=== PATIENT | female | born 1975 | race Caucasian/White ===

== ENCOUNTER 2018-06-29 11:21 | Emergency (ER) | payer SELFPAY ==
[~2018-06-29] VITALS: Ht 167.6 cm; Wt 65.0 kg
[2018-06-29 11:24] VITALS: BP 122/78
[2018-06-29] MEDS ORDERED: HYDROCODONE/ACETAMINOPHEN 5/325MG TABLET PO ONE (12:45)
== END 2018-06-29 13:58 | disposition home or self-care (01) ==
LOC: ER 11:21
DX: S50.11XA Contusion of right forearm, initial encounter (principal); S40.011A Contusion of right shoulder, initial encounter; S60.211A Contusion of right wrist, initial encounter; Z88.0 Allergy status to penicillin; Y04.0XXA Assault by unarmed brawl or fight, initial encounter; Y93.89 Activity, other specified; Y92.512 Supermarket, store or market as the place of occurrence of the external cause
CPT/HCPCS: 73030; 73070; 73090; 99283; A4565

== ENCOUNTER 2018-09-29 12:05 | Emergency (ER) | payer MEDICAID ==
[~2018-09-29] VITALS: Ht 167.6 cm; Wt 77.0 kg
[2018-09-29] MEDS ORDERED: LORAZEPAM 2MG/ML CPJ IV ONE (14:00)
[2018-09-29 14:32] LABS: BASOPHILS % 0.3 % (0.0-2.0); EOSINOPHILS % 14.1 % (0.0-5.0); HEMATOCRIT. 39.9 % (36.0-48.0); LYMPHOCYTES % 29.6 % (20.0-50.0); MEAN CORPUSCULAR HEMOGLOBIN 30.8 pg (28.0-32.0); MEAN CORPUSCULAR VOLUME 87.8 fL (81.0-99.0); MEAN PLATELET VOLUME 6.9 fl (7.4-10.4); MONOCYTES % 5.1 % (2.0-8.0); NEUTROPHILS % 50.9 % (40.0-76.0); PLATELET 215 x1000/uL (130-400); RED BLOOD CELL COUNT 4.55 mill/uL (4.2-5.4); RED CELL DISTRIBUTION WIDTH 12.5 % (11.6-14.6)
[2018-09-29 14:38] LABS: CHLORIDE 107 mEq/L (98-107)
[2018-09-29] MEDS ORDERED: SODIUM CHLORIDE 0.9% 1,000 ML IV ONE (15:00)
[2018-09-29] MEDS ORDERED: KETOROLAC 15MG/ML VIAL IV ONE (15:00)
[2018-09-29] MEDS ORDERED: DIPHENHYDRAMINE 50MG/ML VIAL IV ONE (15:00)
[2018-09-29 15:52] VITALS: BP 118/78
== END 2018-09-29 16:09 | disposition home or self-care (01) ==
LOC: ER 12:05
DX: T63.311A Toxic effect of venom of black widow spider, accidental (unintentional), initial encounter (principal); Y92.89 Other specified places as the place of occurrence of the external cause; R07.89 Other chest pain; M79.18 Myalgia, other site; Z90.710 Acquired absence of both cervix and uterus; Z90.49 Acquired absence of other specified parts of digestive tract; Z88.0 Allergy status to penicillin
CPT/HCPCS: 36415; 71045; 80053; 81025; 83880; 84484; 85025; 93005; 96374; 96375; 99284; J1200; J1885; J2060

== ENCOUNTER 2019-02-18 10:41 | Emergency (ER) | payer MEDICAID ==
[~2019-02-18] VITALS: Ht 167.6 cm; Wt 77.0 kg
[2019-02-18 11:34] VITALS: BP 110/83
== END 2019-02-18 16:07 | disposition home or self-care (01) ==
LOC: ER 10:41
DX: J11.1 Influenza due to unidentified influenza virus with other respiratory manifestations (principal); Z88.0 Allergy status to penicillin; Z90.710 Acquired absence of both cervix and uterus; Z90.89 Acquired absence of other organs
CPT/HCPCS: 99281; 99283

== ENCOUNTER 2019-07-11 20:36 | Emergency (ER) | payer MEDICAID ==
[~2019-07-11] VITALS: Ht 167.6 cm; Wt 79.0 kg
[2019-07-11] MEDS ORDERED: IBUPROFEN 800MG TABLET PO ONE (21:45)
[2019-07-11 22:39] VITALS: BP 109/89
== END 2019-07-11 22:42 | disposition home or self-care (01) ==
LOC: ER 20:36
DX: S60.051A Contusion of right little finger without damage to nail, initial encounter (principal); W01.198A Fall on same level from slipping, tripping and stumbling with subsequent striking against other object, initial encounter; Y93.89 Activity, other specified; Y92.018 Other place in single-family (private) house as the place of occurrence of the external cause; Z85.9 Personal history of malignant neoplasm, unspecified; Z90.710 Acquired absence of both cervix and uterus
CPT/HCPCS: 29130; 73130; 99283

== ENCOUNTER 2020-09-29 13:45 | Emergency (ER) | payer MEDICAID ==
[~2020-09-29] VITALS: Ht 167.6 cm; Wt 81.0 kg
[2020-09-29 13:51] VITALS: BP 135/82
== END 2020-09-29 16:21 | disposition left against medical advice (07) ==
LOC: ER 13:45
DX: Z53.21 Procedure and treatment not carried out due to patient leaving prior to being seen by health care provider (principal)

== ENCOUNTER 2023-02-03 18:47 | Emergency (ER) | payer MEDICAID ==
[~2023-02-03] VITALS: Ht 167.6 cm; Wt 91.0 kg
[2023-02-03 19:01] VITALS: BP 142/108; PULSE 100; RESP 16; TEMP 98.2; O2SAT 96
[2023-02-03] MEDS ORDERED: IBUPROFEN 600MG TABLET PO ONE (20:00)
[2023-02-03] MEDS ORDERED: BENZ1LOZ73 MT (21:18)
== END 2023-02-03 21:53 | disposition home or self-care (01) ==
LOC: ER 18:47
DX: J06.9 Acute upper respiratory infection, unspecified (principal); J02.9 Acute pharyngitis, unspecified; Z90.710 Acquired absence of both cervix and uterus
CPT/HCPCS: 87070; 87430; 87804; 99283

== ENCOUNTER 2023-02-06 03:12 | Emergency (ER) | payer MEDICAID, OTHER ==
[~2023-02-06] VITALS: Ht 167.6 cm; Wt 79.0 kg
[~2023-02-06 03:12] MED LIST: BENZ1LOZ73 MT
[2023-02-06] MEDS ORDERED: METHYLPREDNISOLONE SOD SUCC 125MG/2ML (ACT-O-VIAL) IM ONE (03:15)
[2023-02-06] MEDS ORDERED: FAMOTIDINE 20MG TABLET PO ONE (03:15)
[2023-02-06] MEDS ORDERED: DIPHENHYDRAMINE 50MG/ML VIAL IM ONE (03:15)
[2023-02-06 03:19] VITALS: BP 145/90; PULSE 104; RESP 14; TEMP 98.2; O2SAT 98
[2023-02-06] MEDS ORDERED: CLIN-116 MT (06:18)
[2023-02-06] MEDS ORDERED: PRED10TA MT (06:18)
== END 2023-02-06 06:40 | disposition home or self-care (01) ==
LOC: ER 03:12
DX: T78.40XA Allergy, unspecified, initial encounter (principal); Y92.89 Other specified places as the place of occurrence of the external cause; Z88.0 Allergy status to penicillin; Z85.9 Personal history of malignant neoplasm, unspecified; Z90.710 Acquired absence of both cervix and uterus; Z90.89 Acquired absence of other organs
CPT/HCPCS: 99284; 96372; J1200; J2930